=== PATIENT | female | born 1950 | race Caucasian/White ===

== ENCOUNTER → 2023-05-02 10:02 | Outpatient (BNVA) | payer MEDICARE, SELFPAY | PROVIDERS: PCP Internal Medicine; Referring Provider Internal Medicine; Visit Provider Podiatrist | DX: B35.1 Tinea unguium (principal); L60.3 Nail dystrophy; L85.3 Xerosis cutis; L84 Corns and callosities | CPT/HCPCS: 99203 ==

== ENCOUNTER → 2023-08-29 10:56 | Outpatient (BNVA) | payer MEDICARE, SELFPAY | PROVIDERS: PCP Internal Medicine; Referring Provider Internal Medicine; Visit Provider Podiatrist | DX: L85.3 Xerosis cutis; B35.1 Tinea unguium; L60.3 Nail dystrophy; L84 Corns and callosities | CPT/HCPCS: 99213 ==

== ENCOUNTER → 2023-12-11 10:24 | Outpatient (BNVA) | payer MEDICARE, SELFPAY | PROVIDERS: PCP Internal Medicine; Referring Provider Internal Medicine; Visit Provider Podiatrist | DX: L85.3 Xerosis cutis; B35.1 Tinea unguium; L60.3 Nail dystrophy; L84 Corns and callosities | CPT/HCPCS: 99213 ==

== ENCOUNTER → 2024-04-29 10:48 | Outpatient (BNVA) | payer MEDICARE, SELFPAY | PROVIDERS: PCP Internal Medicine; Referring Provider Internal Medicine; Visit Provider Podiatrist | DX: L85.3 Xerosis cutis (principal); B35.1 Tinea unguium; L60.3 Nail dystrophy; L84 Corns and callosities; M21.611 Bunion of right foot; M21.612 Bunion of left foot | CPT/HCPCS: 99213 ==

== ENCOUNTER → 2024-08-26 09:58 | Outpatient (BNVA) | payer MEDICARE, SELFPAY | PROVIDERS: PCP Internal Medicine; Referring Provider Internal Medicine; Visit Provider Podiatrist | DX: L85.3 Xerosis cutis (principal); B35.1 Tinea unguium; L60.3 Nail dystrophy; L84 Corns and callosities | CPT/HCPCS: 99213 ==

== ENCOUNTER → 2024-12-31 09:54 | Outpatient (BNVA) | payer MEDICARE, SELFPAY | PROVIDERS: PCP Internal Medicine; Referring Provider Internal Medicine; Visit Provider Podiatrist | DX: L85.3 Xerosis cutis (principal); B35.1 Tinea unguium; L60.3 Nail dystrophy; L84 Corns and callosities; M21.611 Bunion of right foot; M21.612 Bunion of left foot | CPT/HCPCS: 99213 ==

== ENCOUNTER → 2025-04-29 10:17 | Outpatient (BNVA) | payer MEDICARE, SELFPAY | PROVIDERS: PCP Internal Medicine; Referring Provider Internal Medicine; Visit Provider Podiatrist | DX: L60.3 Nail dystrophy (principal); B35.1 Tinea unguium | CPT/HCPCS: 99213 ==

== ENCOUNTER → 2025-06-03 08:27 | Outpatient (BNVA) | payer MEDICARE, SELFPAY | PROVIDERS: PCP Internal Medicine; Referring Provider Internal Medicine; Visit Provider Podiatrist | DX: L60.3 Nail dystrophy (principal); B35.1 Tinea unguium; L84 Corns and callosities; L85.3 Xerosis cutis | CPT/HCPCS: 11755 ==